=== PATIENT | male | born 1970 | race Two or more races ===

== ENCOUNTER 2019-10-25 03:51 | Emergency (ER) | payer SELFPAY ==
[~2019-10-25] VITALS: Ht 160 cm; Wt 80.0 kg
[2019-10-25] MEDS ORDERED: LORA0.5T96 PO (04:31)
--- NOTE | 2019-10-25 04:31 | PHYS DOC ---
Past Medical History Past Medical History: Kidney Stone Past Surgical History: No Surgical History Smoking Status: Current Every Day Smoker Alcohol Use: Occasionally Drug Use: None General Adult EDM: Chief Complaint: SHORTNESS OF BREATH HPI: HPI: 49 year old male presents with report of shortness of breath which started at approximately 0200 this AM. Denies fever or cough. Denies known sick contacts. Denies recent travel. Denies known exposure to anyone positive for COVID-19. Review of Systems: Review of Systems: Constitutional: Denies fever or chills Eyes: Denies change in visual acuity, or eye pain HENT: Denies nasal congestion or sore throat Respiratory: Denies cough; reports shortness of breath Cardiovascular: Denies chest pain or palpitations GI: Denies abdominal pain, nausea, or vomiting : Denies dysuria or hematuria Musculoskeletal: Denies back pain or joint pain Integument: Denies rash or skin lesions Neurologic: Denies headache, focal weakness or sensory changes Complete systems were reviewed and found to be within normal limits, except as documented in this note. Heart Score: HEART Score for Chest Pain: HEART Score for Chest Pain Response (Comments) Value History Slighlty/Non-Suspicious 0 ECG Normal 0 Age >45 - < 65 1 Risk Factors 1 or 2 Risk Factors 1 Total 2 Risk Factors: Risk Factors: DM, Current or recent (<one month) smoker, HTN, HLP, family history of CAD, obesity. Risk Scores: Score 0 - 3: 2.5% MACE over next 6 weeks - Discharge Home Score 4 - 6: 20.3% MACE over next 6 weeks - Admit for Clinical Observation Score 7 - 10: 72.7% MACE over next 6 weeks - Early Invasive Strategies Current Medications: Current Medications Medications (Trade) Dose Ordered Sig/Rene Start Time Stop Time Status Last Admin Dose Admin Dexamethasone (Decadron) 10 mg 1X ONCE 10/25/19 04:30 10/25/19 04:31 UNV Lorazepam (Ativan) 0.5 mg 1X ONCE 10/25/19 04:30 10/25/19 04:31 UNV Allergies: Allergies: Allergies Coded Allergies Type Severity Reaction Last Updated Verified No Known Drug Allergies 01/23/16 No Physical Exam: PE: Constitutional: Well developed, well nourished, appears anxious, non-toxic appearance HENT: Normocephalic, atraumatic, oropharynx moist Eyes: Conjunctiva normal, no discharge Neck: Normal range of motion, no tenderness, supple Cardiovascular: Heart rate normal, regular rhythm Lungs & Thorax: Bilateral breath sounds clear to auscultation, no wheezes Abdomen: Soft, no tenderness Skin: Warm, dry, no erythema Back: No tenderness, no CVA tenderness Extremities: No tenderness, ROM intact, no edema Neurologic: Alert and oriented X 3, no focal deficits noted Psychologic: Affect anxiety, judgement normal Current Patient Data: Vital Signs: Vital Signs Date Time Temp Pulse Resp B/P (MAP) Pulse Ox O2 Delivery O2 Flow Rate FiO2 10/25/19 04:11 98.2 97 18 157/82 (107) 98 Room Air 98.2 EKG: EKG: @0435 NSR at 99bpm, NO ST elevation, QRS 94ms, QT/QTc 338/439ms Radiology/Procedures: Radiology/Procedures: PROCEDURE: CHEST PA & LATERAL CHEST PA LATERAL History: Shortness of air Comparison: None. Findings: The cardiomediastinal silhouette is normal. Pulmonary vasculature is normal. The lungs are clear. No pleural effusion or pneumothorax is seen. There is no acute bone abnormality. IMPRESSION: No acute cardiopulmonary process. Electronically signed by: Brain Junior MD (10/25/2019 6:09 AM) [id number] Course & Med Decision Making: Course & Med Decision Making Pertinent Labs and Imaging studies reviewed. (See chart for details) Patient presents with sudden SOA. Patient appears anxious. VS stable. EKG stable. HEART score 2. CXR without acute process. PERC negative. Anxiety addressed with interval improvement. Patient stable for discharge with outpatient follow-up with PCP. Discussed findings and plan with patient, who acknowledges understanding and agreement. Benjamin Disclaimer: Benjamin Disclaimer: This electronic medical record was generated, in whole or in part, using a voice recognition dictation system. Departure Departure Impression: Primary Impression: Shortness of breath Additional Impression: Anxiety Disposition: 01 HOME, SELF-CARE Condition: STABLE Referrals: NO PCP (PCP) Patient Instructions: Anxiety and Panic Attacks, [id number], Shortness of Breath, [id number] Scripts Lorazepam (ATIVAN) 0.5 Mg Tablet 0.5 MG PO TID PRN for ANXIETY, #10 TAB Prov: GIOVANNI CALLEJAS DO 10/25/19 PERC Rule for PE PERC Rule for PE PERC Rule for PE Response (Comments) Value Age > 50: No 0 HR > 100: No 0 Sa02 on room air <95%: No 0 Unilateral leg swelling: No 0 Hemoptysis: No 0 Recent surgery or trauma: No 0 Prior PE or DVT: No 0 Hormone use: No 0 Total 0 CALLEJASGIOVANNI DO October 25, 2019 04:31
[2019-10-25] MEDS ORDERED: DEXAMETHASONE 4 MG TABLET PO ONE (05:00)
[2019-10-25] MEDS ORDERED: LORazepam 0.5 MG TABLET PO ONE (05:00)
[2019-10-25 05:45] VITALS: BP 152/82
--- NOTE | 2019-10-25 06:11 | RAD ---
CHEST PA LATERAL History: Shortness of air Comparison: None. Findings: The cardiomediastinal silhouette is normal. Pulmonary vasculature is normal. The lungs are clear. No pleural effusion or pneumothorax is seen. There is no acute bone abnormality. IMPRESSION: No acute cardiopulmonary process. Electronically signed by: Brain Junior MD (10/25/2019 6:09 AM) [id number]
--- NOTE | 2019-10-25 06:29 | EKG ---
[facility] [address] [place] [address] Test Date: 2019-10-25 Test Time: 04:35:47 Pat Name: VLADIMIR GALINDO Department: Room: Gender: M [employer]: : 1970 Requested By: GIOVANNI CALLEJAS Order Number: [id number] Reading MD: Shamir Garcia MD Measurements Intervals Garibaldi Rate: 99 P: 7 [place]: 144 QRS: 72 QRSD: 94 T: 44 QT: 338 QTc: 439 Interpretive Statements SINUS RHYTHM Electronically Signed On 10-26-2019 11:44:13 CDT by Shamir Garcia MD
== END 2019-10-25 06:04 | disposition home or self-care (01) ==
LOC: ER 03:51
DX: R06.02 Shortness of breath (principal); F41.9 Anxiety disorder, unspecified; F17.200 Nicotine dependence, unspecified, uncomplicated; Z87.442 Personal history of urinary calculi
CPT/HCPCS: 71046; 93005; 99283; J8540